=== PATIENT | female | born 1985 | race American Indian/Alaskan Native ===

== ENCOUNTER 2022-05-25 19:55 | Emergency (ER) | payer BC, OTHER ==
[~2022-05-25] VITALS: Ht 167.6 cm; Wt 113.4 kg
--- OUTSIDE RECORDS SUMMARY | 2022-05-25 19:58 | XMS ---
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 [place] has no Care Guidelines for this patient. Jignesh VISIT COUNT (12 MO.) 1 OSEAS [place] TOTAL 1 NOTE: Visits indicate total known visits. ED/UCC VISIT TRACKING (12 MO.) 05/25/2022 19:57 OSEAS Torres OR TYPE: Emergency COMPLAINT: - KNEE PAIN INPATIENT VISIT TRACKING (12 MO.) No inpatient visits to display in this time frame [email or web address]
[2022-05-25] MEDS ORDERED: HYDROCODON-ACE1 EA10 PO (21:25)
== END 2022-05-25 22:09 | disposition home or self-care (01) ==
LOC: ED 19:55
DX: M23.52 Chronic instability of knee, left knee (principal); F17.200 Nicotine dependence, unspecified, uncomplicated; Z88.5 Allergy status to narcotic agent
CPT/HCPCS: 73560; A9270; J1885